=== PATIENT | male | born 1965 | race Caucasian/White ===

== ENCOUNTER 2018-12-30 17:09 | Observation (INO) | payer BC ==
[2018-12-30] MEDS ORDERED: levETIRAcetam In NaCl (Iso-Os) 1,500 MG in Premix Bag 1 BAG IVPB ONE (18:45)
[2018-12-30 18:46] LABS: #Basophils 0.1 thou/uL (0.0-0.2); #Lymphocytes 2.2 thou/uL (1.20-3.40); #Monocytes 0.8 thou/uL (0.11-0.59); #Neutrophils 2.5 thou/uL (1.40-6.50); %Basophils 1.5 % (0.0-1.0); %Eosinophils 0.6 % (0.0-10.0); %Lymphocytes 39.6 % (21.0-51.0); %Monocytes 14.2 % (0.0-10.0); %Neutrophils 44.2 % (42.0-75.0); Hemoglobin 13.1 g/dL (14.0-18.0); Mean Corpuscular HGB CONC 30.8 g/dL (32.0-36.0); Mean Corpuscular Hemoglobin 25.3 pg (27.0-31.0); Mean Corpuscular Volume 82.3 fL (78.0-98.0); Mean Platelet Volume 8.7 fL (7.4-10.4); Platelet Count 143 thou/uL (130-400); RBC Distribution Width 17.2 % (11.5-14.5); Red Blood Cell (RBC) Count 5.16 mill/uL (4.70-6.10); White Blood Cell (WBC) Count 5.6 thou/uL (4.8-10.8)
[2018-12-30 18:59] LABS: ALT (SGPT) 88 U/L (8-55); AST (SGOT) 125 U/L (5-34); Albumin 4.5 g/dL (3.5-5.0); Alkaline Phosphatase 89 U/L (40-150); Anion Gap 34 mmol/L (10-20); BUN (Urea Nitrogen) 6 mg/dL (8.4-25.7); Bilirubin, Total 0.7 mg/dL (0.2-1.2); Calc. Creatinine Clearance 0 mL/min (70-130); Carbon Dioxide 12 mmol/L (22-29); Chloride 97 mmol/L (98-107); Estimated GFR-MDRD 74; Globulin 3.8 g/dL (2.4-3.5); Glucose 161 mg/dL (70-105); Potassium 3.5 mmol/L (3.5-5.1); Protein, Total 8.3 g/dL (6.0-8.3); Sodium 139 mmol/L (136-145)
--- NOTE | 2018-12-30 19:08 | RAD ---
PORTABLE CHEST ONE VIEW: 12/30/18 at 7:41 p.m. HISTORY: Altered mental status, seizure. FINDINGS: The heart size is normal. The lungs are well expanded without focal areas of consolidation, pneumotho races, yaa pulmonary edema or pleural effusions. IMPRESSION: No acute process. POS: [facility]
[2018-12-30 19:36] LABS: Magnesium 1.8 mg/dL (1.6-2.6); Phosphorus 5.2 mg/dL (2.3-4.7)
[2018-12-30 19:38] LABS: Acetaminophen Less than 6.0 mcg/mL (10.0-30.0); Alcohol 18 mg/dL (Less than 10); Salicylate Less than 8.0 mg/dL (15.0-30.0)
[2018-12-30] MEDS ORDERED: Lorazepam 2 MG/ML VIAL ONE (19:44)
[2018-12-30] MEDS ORDERED: Multivitamins, Adult 10 ML, Thiamine HCl 100 MG, Folic Acid 1 MG in Dextrose 5 %-0.45 %... IV SCH (19:45)
[2018-12-30 19:49] LABS: Bilirubin Negative (Negative); Blood, Urine Small (Negative); Clarity CLEAR (Clear); Glucose, Urine (Dipstick) 100 mg/dL (Negative); Leukocyte Negative (Negative); Nitrite Negative (Negative); Protein, Urine (Dipstick) Negative (Neg-Trace); Specific Gravity, Urine 1.009 (1.002-1.036); Urobilinogen 0.2 mg/dL (0.2-1.0)
--- NOTE | 2018-12-30 19:50 | CT ---
CT OF BRAIN WITHOUT CONTRAST: 12/30/18 HISTORY: Seizure. FINDINGS: No evidence of infarct, hemorrhage, midline shift or abnormal extra-axial fluid collections are seen. The ventricular size is appropriate and the basilar cisterns patent. The bony calvarium is intact. The visualized paranasal sinuses are well aerated. There is a small martina unt of fluid in the mastoid air cells. IMPRESSION: No CT evidence of acute intracranial process. POS: [facility]
[2018-12-30 19:51] LABS: Bacteria/HPF None Seen HPF (None Seen); Hyaline Casts/LPF 0-3 HYALINE CAST LPF (0-3 Hyaline); Pathc Cast-AUWi Flag 0.13 (0-2.49); Squamous Epithelial None Seen HPF (0-3); WBC/HPF None Seen HPF (0-3)
[2018-12-30 20:01] LABS: Amphetamine Not Detected (NotDetected); Barbiturates Screen Not Detected (NotDetected); Benzodiazepine Screen Not Detected (NotDetected); Cocaine Metabolite Screen Not Detected (NotDetected); Medtox Control Line Valid? VALID (VALID); Medtox Reader # READER 1; Methadone Not Detected (NotDetected); Methamphetamine Not Detected (NotDetected); Opiate Screen Not Detected (NotDetected); Oxycodone Screen Not Detected (NotDetected); Phencyclidine (PCP) Not Detected (NotDetected); THC/Cannabinoid Screen Not Detected (NotDetected); Tricyclic Screen Not Detected (NotDetected)
[2018-12-30 20:11] LABS: Troponin I Less than 0.010 ng/mL (< 0.028)
[2018-12-30 20:27] LABS: Lactic Acid 8.7 mmol/L (0.5-2.2)
[2018-12-31] MEDS ORDERED: levETIRAcetam 500 MG TAB PO SCH (08:30)
--- NOTE | 2018-12-31 12:38 | SS ---
DATE OF ADMISSION: 12/30/2018 DATE OF DISCHARGE: 12/31/2018 PRIMARY CARE PHYSICIAN: Dr. Barrera in [place]. CHIEF COMPLAINT: "I had a seizure." HISTORY OF PRESENT ILLNESS: Mr. Hansen is a pleasant 53-year-old gentleman, who has a history of seizure disorder as well as hypertension. He says he has not had a seizure in quite some time and in fact had tapered himself off seizure medicine without the instruction of his physician. He was here to visit his dad, who is having back surgery and he says that he was in the room with his father with some friends, when his says suddenly his eyes got really big and he turned around and the next thing they knew he was having a seizure. He noticed that his voice sounded far away and that is all he remembered. Prior to the event, he denies having any fevers or chills. No headache or dizziness. No chest pain, shortness of breath, etc. The patient says that he had been having some difficulty with sleeping in the last few days prior, but otherwise no complaints. REVIEW OF SYSTEMS: All systems were reviewed and are negative except for that mentioned in the history of present illness. PAST MEDICAL HISTORY: Significant for seizure disorder, gout, and hypertension. PAST SURGICAL HISTORY: He has had a surgery on his left leg. ALLERGIES: NO KNOWN DRUG ALLERGIES. SOCIAL HISTORY: He admits to smoking as well as alcohol use about a couple of beers a day. He is and is a full code. FAMILY HISTORY: Significant for diabetes and hypertension. CURRENT MEDICATIONS: None. PHYSICAL EXAMINATION: GENERAL: He is alert and oriented. He appears to be in no acute distress. He is well developed and well nourished. VITAL SIGNS: Blood pressure was 122/61, heart rate 70, respiratory rate of 17, and temperature is 97.7. HEENT: Pupils are equal, round, and reactive. Extraocular muscles are intact. His sclerae are anicteric. Throat; there is no erythema. No exudates. NECK: No adenopathy. No bruits. LUNGS: Clear to auscultation. There is no wheezing. No rales. No rhonchi. CARDIOVASCULAR: He has a normal S1 and S2. There is no S3 or S4. No murmurs, clicks, or rubs. ABDOMEN: Soft. It is nontender and nondistended. Positive for bowel sounds. No rebound or guarding. EXTREMITIES: There is no clubbing or cyanosis. No edema. NEUROLOGICAL: The exam is nonfocal. SKIN and INTEGUMENT: no skin changes no rashes LABORATORY RESULTS: White blood cell count is 5.6, hemoglobin 13.1, hematocrit is 42.5, and platelet count is 143. Sodium 139, potassium 3.5, chloride is 97, CO2 is 12, BUN of 34, creatinine of 1.04, and glucose is 161. ASSESSMENT AND PLAN: This is a 53-year-old gentleman, who presented to the emergency room with an acute seizure. Likely as a result of not taking his Keppra as he had weaned himself off, his lab work was essentially negative except for some alcohol, which was in his system. His he has been instructed to take his Keppra as previously directed. He was loaded in the ER with IV Keppra and to follow up as soon as possible with his primary care physician. We will give him a month's supply of his Keppra. He has been instructed not to drive until he is cleared by a neurologist and can return to the ER should he have a repeat seizure. Job ID: [id number] [facility]
--- NOTE | 2019-01-03 13:54 | EKG ---
Test Reason : Blood Pressure : / mmHG Vent. Rate : 088 BPM Atrial Rate : 088 BPM P-R Int : 160 ms QRS Dur : 072 ms QT Int : 402 ms P-R-T Axes : 048 026 041 degrees QTc Int : 486 ms Normal sinus rhythm Prolonged QT Abnormal ECG Confirmed by LEIDY KHAN DO ([id number]), film editor DONOVAN CARMONA ([id number]) on 01/03/2019 1:54:30 PM Referred By: Confirmed By:LEIDY KHAN DO
== END 2018-12-31 08:54 | disposition home or self-care (01) ==
LOC: ERS 17:09 → ERHOLD 21:20
PROVIDERS: ADMIT Family Medicine; ATTEND Family Medicine
DX: G40.909 Epilepsy, unspecified, not intractable, without status epilepticus (principal); I10 Essential (primary) hypertension; M10.9 Gout, unspecified; F17.200 Nicotine dependence, unspecified, uncomplicated
CPT/HCPCS: 36415; 36416; 70450; 71045; 80053; 80306; 80307; 81003; 81015; 83605; 83735; 84100; 84146; 84443; 84484; 85025; 87040; 87149; 87804; 93005; 94760; 96361; 96365; 96375; G0378; J1953; J2060; J3411; J7042